=== PATIENT | male | born 1990 | race American Indian/Alaskan Native ===

== ENCOUNTER 2020-05-10 13:26 | Emergency (ER) | payer OTHER ==
--- NOTE | 2020-05-10 13:37 | Event Note ---
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 Further treatment and workup at subsequent clinical providers discretion. Patient/guardian urged not to elope from the ED as their condition may be serious if not clinically assessed and managed. Initial orders include: labs, CXR, EKG hypoxia
[2020-05-10] MEDS ORDERED: dexAMETHasone 20 MG/5 ML VIAL IM ONE (13:39)
[2020-05-10] MEDS ORDERED: ALBUTEROL 2.5 MG/3 ML NEBU IH ONE (13:39)
[2020-05-10] MEDS ORDERED: IPRATROPIUM 0.02% NEBU 2.5 ML IH ONE (13:39)
--- NOTE | 2020-05-10 14:14 | XRay Report ---
CHEST 2 VIEWS INDICATION / CLINICAL INFORMATION: SOB. COMPARISON: None available. FINDINGS: SUPPORT DEVICES: None. HEART / MEDIASTINUM: No significant abnormality. LUNGS / PLEURA: Clear lungs. No significant pleural effusion. No pneumothorax. ADDITIONAL FINDINGS: No significant additional findings. IMPRESSION: 1. No acute abnormality of the chest. Signer Name: Leopoldo Abraham MD Signed: 05/10/2020 2:10 PM Workstation Name: [id number]
[2020-05-10 14:23] LABS: Basophils % (Auto) 0.4 % (0.0-1.8); Eosinophils # (Auto) 0.7 K/mm3 (0.0-0.4); Eosinophils % (Auto) 6.9 % (0.0-4.3); Hemoglobin 15.7 gm/dl (11.8-15.2); Lymphocytes # (Auto) 1.5 K/mm3 (1.2-5.4); Lymphocytes % (Auto) 14.9 % (13.4-35.0); Mean Corpuscular HGB Conc 34 % (32-34); Mean Corpuscular Volume 82 fl (84-94); Monocytes # (Auto) 0.6 K/mm3 (0.0-0.8); Monocytes % (Auto) 6.4 % (0.0-7.3); Platelet Count 227 K/mm3 (140-440); Red Blood Count 5.72 M/mm3 (3.65-5.03); Red Cell Distribution Width 12.9 % (13.2-15.2)
--- NOTE | 2020-05-10 14:29 | Emergency Department Report ---
ED Shortness of Breath HPI - General Chief Complaint: Dyspnea/Respdistress Stated Complaint: DIFFICULTY BREATHING Time Seen by Provider: 05/10/20 13:35 Source: patient Mode of arrival: Ambulatory Limitations: No Limitations - History of Present Illness Initial Comments: 30-year-old -[place] male presents to the emergency room for difficulty breathing down 45 minutes prior to arrival. Patient denies any history of wheezing no asthma, no hypertension, no cardiac disease no congestive heart failure no trauma currently takes no medications on a daily basis does admit that he has allergies to pollen. He works as a rolloff truck driver. Denies any chest pain no fever. MD Complaint: shortness of breath - Related Data Previous Rx's Medication Instructions Recorded Last Taken Type Albuterol Sulfate [Proventil Hfa] 6.7 gm IH QID PRN #1 hfa.aer.ad 05/10/20 Unknown Rx predniSONE [Deltasone] 20 mg PO QDAY 5 Days #5 tab 05/10/20 Unknown Rx Allergies Allergy/AdvReac Type Severity Reaction Status Date / Time POLL Allergy Unknown Uncoded 05/10/20 13:29 ED Review of Systems ROS: Stated complaint: DIFFICULTY BREATHING Other details as noted in HPI ED Past Medical Hx - Past Medical History Previous Medical History?: No - Surgical History Past Surgical History?: No - Social History Smoking Status: Never Smoker Substance Use Type: None - Medications Home Medications: Home Medications Medication Instructions Recorded Confirmed Last Taken Type Albuterol Sulfate [Proventil Hfa] 6.7 gm IH QID PRN #1 hfa.aer.ad 05/10/20 Unknown Rx predniSONE [Deltasone] 20 mg PO QDAY 5 Days #5 tab 05/10/20 Unknown Rx ED Physical Exam - General Limitations: No Limitations General appearance: alert, in distress - Head Head exam: Present: atraumatic, normocephalic - Eye Eye exam: Present: normal appearance - ENT ENT exam: Present: normal exam, mucous membranes moist, normal external ear exam - Neck Neck exam: Present: normal inspection, full ROM. Absent: tenderness - Respiratory Respiratory exam: Present: wheezes, rhonchi, accessory muscle use, other (Tachypneic) - Cardiovascular Cardiovascular Exam: Present: regular rate - GI/Abdominal GI/Abdominal exam: Present: soft, normal bowel sounds. Absent: distended - Back Exam Back exam: Present: normal inspection, full ROM - Neurological Exam Neurological exam: Present: alert, oriented X3 - Psychiatric Psychiatric exam: Present: normal affect, normal mood - Skin Skin exam: Present: warm, dry, intact, normal color. Absent: rash ED Course Vital Signs 05/10/20 05/10/20 05/10/20 13:32 14:43 15:02 Temperature 97.9 F Pulse Rate 87 86 Pulse Rate [ 90 Anterior Bilateral Throughout] Respiratory 32 H Rate Respiratory 26 H Rate [Anterior Bilateral Throughout] Blood Pressure 148/75 O2 Sat by Pulse 89 96 Oximetry - Reevaluation(s) Reevaluation #1: 05/10/20 14:20 Patient reports he feels much better after having treatment. Breath sounds have improved. ED Medical Decision Making - Lab Data Result diagrams: 05/10/20 14:09 05/10/20 14:09 - Radiology Data Radiology results: report reviewed [facility] [address] [place] [address] XRay Report Signed Patient: RANDOLPH MCCOY MR#: [id number] : 1990 Acct:[id number] Age/Sex: 30 / M ADM Date: 05/10/20 Loc: ED Attending Dr: Ordering Physician: MANISHA MITTAL Date of Service: 05/10/20 Procedure(s): XR chest routine 2V Accession Number(s): [id number] cc: MANISHA MITTAL Fluoro Time In Minutes: CHEST 2 VIEWS INDICATION / CLINICAL INFORMATION: SOB. COMPARISON: None available. FINDINGS: SUPPORT DEVICES: None. HEART / MEDIASTINUM: No significant abnormality. LUNGS / PLEURA: Clear lungs. No significant pleural effusion. No pneumothorax. ADDITIONAL FINDINGS: No significant additional findings. IMPRESSION: 1. No acute abnormality of the chest. Signer Name: Leopoldo Abraham MD Signed: 05/10/2020 2:10 PM Workstation Name: [id number] Transcribed By: [place] Dictated By: Leopoldo Abraham MD Electronically Authenticated By: Leopoldo Abraham MD Signed Date/Time: 05/10/20 141 DD/ 09 TD/TT: Print Cancel - Medical Decision Making 30-year-old -[place] male presents to the emergency room for difficulty breathing down 45 minutes prior to arrival. Patient denies any history of wheezing no asthma, no hypertension, no cardiac disease no congestive heart failure no trauma currently takes no medications on a daily basis does admit that he has allergies to pollen. He works as a rolloff truck driver. Denies any chest pain no fever. It was reported in triage that patient was having labored breathing he was started on nebulizer prednisone chest x-ray. Patient will be discharged home on prednisone 20 mg p.o. x5 days and albuterol inhaler. Patient is referred to primary care provider. Critical care attestation.: If time is entered above; I have spent that time in minutes in the direct care of this critically ill patient, excluding procedure time. ED Disposition Clinical Impression: Wheezing, Seasonal allergies Disposition: TO HOME OR SELFCARE Is pt being admited?: No Does the pt Need Aspirin: No Condition: Stable Instructions: Allergic Rhinitis, Adult, [id number], Shortness of Breath, Adult Additional Instructions: Labs are all stable x-ray is within normal limits. Take medication as prescribed and follow-up with the local coordinator as well as your primary care provider. Prescriptions: predniSONE [Deltasone] 20 mg PO QDAY 5 Days #5 tab Albuterol Sulfate [Proventil Hfa] 6.7 gm IH QID PRN #1 hfa.aer.ad PRN Reason: Shortness Of Breath Referrals: [facility] [Provider Group] - 3-5 Days [facility] [Provider Group] - 3-5 Days Forms: Work/School Release Form(ED)
[2020-05-10 14:50] LABS: Alanine Aminotransferase 20 units/L (7-56); Albumin 4.4 g/dL (3.9-5); BUN/Creatinine Ratio 13; Blood Urea Nitrogen 12 mg/dL (9-20); Calcium 9.2 mg/dL (8.4-10.2); Hemolysis Index 17
[2020-05-10 15:21] VITALS: BP 142/69
== END 2020-05-10 15:50 | disposition home or self-care (01) ==
LOC: ED 13:26
DX: R06.2 Wheezing (principal); J30.2 Other seasonal allergic rhinitis; Z79.899 Other long term (current) drug therapy
CPT/HCPCS: 36415; 71046; 80053; 85025; 94640; 96372; 99284; J1100; 94644

== ENCOUNTER 2021-05-17 19:29 | Emergency (ER) | payer OTHER | END 2021-05-17 19:34 | disposition left against medical advice (07) | LOC: ED 19:29 | DX: R06.02 Shortness of breath (principal); Z53.21 Procedure and treatment not carried out due to patient leaving prior to being seen by health care provider ==